=== PATIENT | female | born 1995 | race Hispanic/Latino ===

== ENCOUNTER 2019-02-15 01:16 | Emergency (ER) | payer BC ==
[2019-02-15] MEDS ORDERED: LIDOCAINE 1% W/EPI 1:100,000 MDV 50 ML VIAL ONE (01:46)
[2019-02-15 02:15] LABS: Absolute Lymphocytes (CBC) 2.1 K/uL (0.7-4.9); Absolute Monocytes 0.7 K/uL (0.1-1.3); Absolute Neutrophil 6.1 K/uL (1.8-8.0); Basophils % 0.7 % (0-1.3); Eosinophils % 1.4 % (0-4.4); Hematocrit 29.6 % (36.0-45.0); Lymphocytes % 23.1 % (15.3-44.8); MPV 9.6 fL (7.6-11.3); Monocytes % 7.9 % (3.3-12.3); RBC Red Blood Cell Count 3.81 M/uL (3.86-4.86)
[2019-02-15 02:29] LABS: ALT/SGPT 20 U/L (12-78); AST/SGOT 14 U/L (15-37); Albumin 3.6 g/dL (3.4-5.0); Alkaline Phosphatase 52 U/L (45-117); BUN Blood Urea Nitrogen 9 mg/dL (7-18); Bicarbonate 24 mmol/L (21-32); Bilirubin Total 0.3 mg/dL (0.2-1.0); Glucose Level 105 mg/dL (74-106); Potassium 3.3 mmol/L (3.5-5.1); Protein, Total 7.2 g/dL (6.4-8.2); Sodium Level 142 mmol/L (136-145)
[2019-02-15] MEDS ORDERED: CLINDAMYCIN 900MG/D5W 900 MG/50 ML IVPB IV ONE (02:33)
--- NOTE | 2019-02-15 03:06 | EDPHYS ---
Physician Documentation [facility] Name: Brook Dutta Age: 23 yrs Sex: Female : 1995 Arrival Date: 02/15/2019 Time: 01:19 Bed 7 Private MD: ED Physician Cosme Moya HPI: 02/15 03:07 This 23 yrs old Female presents to ER via Ambulatory with complaints of LT arm ps1 swelling and painful. 03:07 patient states that she is on Humira for psoriasis and took her meds 2 weeks ago. She ps1 is supposed to take another dose tomorrow but started to get an indurated and erythmatous area localized just proximal to the left AC on the upper extremity. She denies fever. Mildly painful. No purulent drainage. . 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 - Social history:: Smoking status: Patient/guardian denies using tobacco. - Ebola Screening: : No symptoms or risks identified at this time. ROS: 03:07 Constitutional: Negative for fever, chills, and weight loss, Eyes: Negative for injury, ps1 pain, redness, and discharge, ENT: Negative for injury, pain, and discharge, Cardiovascular: Negative for chest pain, palpitations, and edema, Respiratory: Negative for shortness of breath, cough, wheezing, and pleuritic chest pain, Abdomen/GI: Negative for abdominal pain, nausea, vomiting, diarrhea, and constipation, Back: Negative for injury and pain, MS/Extremity: Negative for injury and deformity, Neuro: Negative for headache, weakness, numbness, tingling, and seizure. 03:07 Skin: Positive for erythema, swelling, of the left antecubital area, generalized psoriasis. Exam: 03:07 Constitutional: This is a well developed, well nourished patient who is awake, alert, ps1 and in no acute distress. Head/Face: Normocephalic, atraumatic. Eyes: Pupils equal round and reactive to light, extra-ocular motions intact. Lids and lashes normal. Conjunctiva and sclera are non-icteric and not injected. Chest/axilla: Normal chest wall appearance and motion. Nontender with no deformity. No lesions are appreciated. Cardiovascular: Regular rate and rhythm. No gallops, murmurs, or rubs. Normal PMI, no JVD. No pulse deficits. Respiratory: Lungs have equal breath sounds bilaterally, clear to auscultation and percussion. No rales, rhonchi or wheezes noted. No increased work of breathing, no retractions or nasal flaring. Abdomen/GI: Soft, non-tender, with normal bowel sounds. No distension or tympany. No guarding or rebound. No evidence of tenderness throughout. MS/ Extremity: Pulses equal, no cyanosis. Neurovascular intact. Full, normal range of motion. Neuro: Awake and alert, GCS 15, oriented to person, place, time, and situation. Cranial nerves II-XII grossly intact. Sensory grossly intact. Psych: Awake, alert, with orientation to person, place and time. Behavior, mood, and affect are within normal limits. 03:07 Skin: cellulitis, that is mild, on the left antecubital area, generalized psoriasis, induration, that is moderate is noted. Vital Signs: 01:50 BP 124 / 78; Pulse 96; Resp 16; Temp 98.2(TE); Pulse Ox 100% on R/A; Weight 74.84 kg ak1 (R); Height 5 ft. 5 in. (165.10 cm) (R); Pain 7/10; 02:00 BP 127 / 75; Pulse 93; Resp 18 S; Temp 98.2(O); Pulse Ox 100% on R/A; cc3 03:10 BP 125 / 77; Pulse 91; Resp 17 S; Temp 98.1(O); Pulse Ox 100% on R/A; cc3 01:50 Body Mass Index 27.46 (74.84 kg, 165.10 cm) ak1 MDM: 01:54 Patient medically screened. ps1 03:10 Data reviewed: vital signs, nurses notes, lab test result(s), and as a result, I will ps1 discharge patient, administer antibiotics. Counseling: I had a detailed discussion with the patient and/or guardian regarding: the historical points, exam findings, and any diagnostic results supporting the discharge/admit diagnosis, the need for outpatient follow up, to return to the emergency department if symptoms worsen or persist or if there are any questions or concerns that arise at home. ED course: Point of care ultrasound performed at bedside and had normal compressibility of the venous structures. Additionally the patient had no evidence of abscess and localized edematous tissues c/w cellulitis. . 02/15 01:29 Order name: CBC with Diff; Complete Time: 02:26 ps1 02/15 01:29 Order name: CMP; Complete Time: 03:03 ps1 Administered Medications: 01:40 Drug: Lidocaine-Epinephrine -1%: (1:100,000) 1 application Volume: 20 ml; Route: ak1 Infiltration; 01:57 Follow up: Response: No adverse reaction ak1 02:22 Drug: Clindamycin 900 mg Route: IVPB; Infused Over: 30 mins; Site: right antecubital; ak1 Disposition: 02/15/19 03:06 Discharged to Home. Impression: Cellulitis of left upper limb. - Condition is Stable. - Discharge Instructions: Lymphangitis, Pediatric, Cellulitis, Adult, [id number]. - Prescriptions for Keflex 500 mg Oral Capsule - take 1 capsule by ORAL route every 6 hours for 10 days; 40 capsule. Bactrim DS 800- 160 mg Oral Tablet - take 1 tablet by ORAL route every 12 hours for 7 days; 14 tablet. - Medication Reconciliation Form, Thank You Letter, Antibiotic Education, Prescription Opioid Use form. - Work release form (02/15/19 03:25). cc3 - Follow up: Private Physician; When: 48 Hours; Reason: Recheck today's complaints, Continuance of care, Re-evaluation by your physician. Follow up: Emergency Department; When: As needed; Reason: Fever > 102 F, Worsening of condition. - Problem is new. - Symptoms are unchanged. Signatures: Dispatcher [employer] EDMS Kika Baird RN RN ak1 Cosme Moya MD MD ps1 Glenna Anderson cc3 Corrections: (The following items were deleted from the chart) 03:24 03:06 02/15/2019 03:06 Discharged to Home. Impression: Cellulitis of left upper limb. cc3 Condition is Stable. Forms are Medication Reconciliation Form, Thank You Letter, Antibiotic Education, Prescription Opioid Use. Follow up: Private Physician; When: 48 Hours; Reason: Recheck today's complaints, Continuance of care, Re-evaluation by your physician. Follow up: Emergency Department; When: As needed; Reason: Fever > 102 F, Worsening of condition. Problem is new. Symptoms are unchanged. ps1
--- NOTE | 2019-02-15 03:06 | ER ---
Nurse's Notes [facility] Name: Brook Dutta Age: 23 yrs Sex: Female : 1995 Arrival Date: 02/15/2019 Time: 01:19 Bed 7 Private MD: Diagnosis: Cellulitis of left upper limb Presentation: 02/15 01:51 Presenting complaint: Patient states: redness, pain and swelling to left AC area X1 ak1 day. 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 Transition of care: patient was not received from another setting of care. Onset of symptoms is unknown. Risk Assessment: Do you want to hurt yourself or someone else? Patient reports no desire to harm self or others. Initial Sepsis Screen: Does the patient meet any 2 criteria? No. Patient's initial sepsis screen is negative. Does the patient have a suspected source of infection? No. Patient's initial sepsis screen is negative. Care prior to arrival: None. 01:51 Acuity: CATARINO 3 ak1 01:51 Method Of Arrival: Ambulatory ak1 Triage Assessment: 01:54 General: Appears in no apparent distress. Behavior is calm, cooperative. Pain: ak1 Complains of pain in left antecubital area. EENT: No signs and/or symptoms were reported regarding the EENT system. Neuro: No deficits noted. Cardiovascular: No deficits noted. Respiratory: No deficits noted. GI: No signs and/or symptoms were reported involving the gastrointestinal system. : No signs and/or symptoms were reported regarding the genitourinary system. Derm: Skin is red, Skin temperature is warm Reports pain. Musculoskeletal: No signs and/or symptoms reported regarding the musculoskeletal system. 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 - Social history:: Smoking status: Patient/guardian denies using tobacco. - Ebola Screening: : No symptoms or risks identified at this time. Screenin:54 Abuse screen: Denies threats or abuse. Denies injuries from another. Nutritional ak1 screening: No deficits noted. Tuberculosis screening: No symptoms or risk factors identified. Fall Risk None identified. Assessment: 02:08 Reassessment: see triage assessment. ak1 03:24 Reassessment: Patient appears in no apparent distress at this time. Patient and/or cc3 family updated on plan of care and expected duration. Pain level reassessed. Patient is alert, oriented x 3, equal unlabored respirations, skin warm/dry/pink. Dr. Moya discharged the patient home with prescription given. IV cannula removed and patient left ER vitally stable and ambulatory with her sister. Patient denies pain at this time. Patient states feeling better. Patient states symptoms have improved. Vital Signs: 01:50 BP 124 / 78; Pulse 96; Resp 16; Temp 98.2(TE); Pulse Ox 100% on R/A; Weight 74.84 kg ak1 (R); Height 5 ft. 5 in. (165.10 cm) (R); Pain 7/10; 02:00 BP 127 / 75; Pulse 93; Resp 18 S; Temp 98.2(O); Pulse Ox 100% on R/A; cc3 03:10 BP 125 / 77; Pulse 91; Resp 17 S; Temp 98.1(O); Pulse Ox 100% on R/A; cc3 01:50 Body Mass Index 27.46 (74.84 kg, 165.10 cm) ak1 ED Course: 01:19 Patient arrived in ED. es 01:23 Cosme Moya MD is Attending Physician. ps1 01:29 Kika Baird, LOUANN is Primary Nurse. ak1 01:50 Arm band placed on Patient placed in an exam room, on a stretcher, on pulse oximetry, ak1 Patient notified of wait time. 01:52 Triage completed. ak1 01:55 Patient has correct armband on for positive identification. Placed in gown. Bed in low ak1 position. Call light in reach. Side rails up X 1. Adult w/ patient. Pulse ox on. NIBP on. 02:00 Inserted saline lock: 20 gauge in right antecubital area, using aseptic technique. cc3 Blood collected. 02:07 US of left AC. assisted with aspiration of left AC area. ak1 03:24 IV discontinued, intact, bleeding controlled, No redness/swelling at site. Pressure cc3 dressing applied. Administered Medications: 01:40 Drug: Lidocaine-Epinephrine -1%: (1:100,000) 1 application Volume: 20 ml; Route: ak1 Infiltration; 01:57 Follow up: Response: No adverse reaction ak1 02:22 Drug: Clindamycin 900 mg Route: IVPB; Infused Over: 30 mins; Site: right antecubital; ak1 Outcome: 03:06 Discharge ordered by . ps1 03:24 Patient left the ED. cc3 03:24 Discharged to home ambulatory, with family. cc3 03:24 Condition: stable 03:24 Discharge instructions given to patient, Instructed on discharge instructions, follow up and referral plans. medication usage, Demonstrated understanding of instructions, follow-up care, medications, Prescriptions given X 2. Signatures: Constance Higgins Amber, RN RN ak1 Cosme Moya MD MD ps1 Glenna Anderson cc3
[2019-02-15 04:42] VITALS: BP 124/78; TEMP 98.2; O2SAT 100
== END 2019-02-15 03:24 | disposition home or self-care (01) ==
LOC: ER 01:16
DX: L03.114 Cellulitis of left upper limb (principal)
CPT/HCPCS: 36415; 80053; 85025; 96374; 99284

== ENCOUNTER 2019-06-27 23:18 | Emergency (ER) | payer BC ==
--- NOTE | 2019-06-28 00:19 | EDPHYS ---
Physician Documentation [facility] Name: Brook Dutta Age: 24 yrs Sex: Female : 1995 Arrival Date: 06/27/2019 Time: 23:22 Bed 16 Private MD: ED Physician George Zee HPI: 06/28 00:00 This 24 yrs old Female presents to ER via Unassigned with complaints of Rash, cp rash has pus. 00:00 The patient's rash thought to be caused by an unknown cause. The rash is located on the cp base of skull and hairline of posterior scalp. 00:00 The rash can be described as painful, draining. Onset: The symptoms/episode cp began/occurred 2 day(s) ago. Associated signs and symptoms: Pertinent positives: Pain Pertinent negatives: fever, itching. Severity of symptoms: in the emergency department the symptoms are unchanged despite home interventions. Patient reports history of psoriasis and takes prescribed HUMARA. 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 - Social history:: Smoking status: Patient/guardian denies using tobacco. - Ebola Screening: : Patient negative for fever greater than or equal to 101.5 degrees Fahrenheit, and additional compatible Ebola Virus Disease symptoms Patient denies exposure to infectious person. ROS: 00:05 Skin: Positive for rash, of the posterior scalp base of skull and hairline. cp 00:05 Constitutional: Negative for body aches, chills, fever, poor PO intake. cp 00:05 Neuro: Negative for altered mental status, headache, weakness. 00:05 All other systems are negative. Exam: 00:10 Constitutional: The patient appears in no acute distress, alert, awake, non-toxic, well cp developed, well nourished. 00:10 Head/face: Exam is negative for obvious evidence of injury or deformity. cp 00:10 Skin: cellulitis, patchy, on the base of skull and posterior hairline. Vital Signs: 00:00 BP 124 / 77; Pulse 77; Resp 18; Temp 98.2; Pulse Ox 100% on R/A; wh MDM: 06/27 23:40 Patient medically screened. 06/28 00:17 Data reviewed: vital signs, nurses notes, and as a result, I will discharge patient. 00:17 Counseling: I had a detailed discussion with the patient and/or guardian regarding: the cp historical points, exam findings, and any diagnostic results supporting the discharge/admit diagnosis, to return to the emergency department if symptoms worsen or persist or if there are any questions or concerns that arise at home. Administered Medications: No medications were administered Disposition: 00:45 Chart complete. 00:52 Co-signature as Attending Physician, George Zee MD. rn Disposition: 06/28/19 00:18 Discharged to Home. Impression: Local infection of the skin and subcutaneous tissue, unspecified - posterior scalp. - Condition is Stable. - Discharge Instructions: Staphylococcal Infection. - Prescriptions for Bactroban 2 % Topical Ointment - Apply to affected area 1 application by TOPICAL route every 12 hours apply to area of rash; 30 gram. Doxycycline Hyclate 100 mg Oral Tablet - take 1 tablet by ORAL route every 12 hours; 20 tablet. - Medication Reconciliation Form, Thank You Letter, Antibiotic Education, Prescription Opioid Use form. - Follow up: Private Physician; When: 2 - 3 days; Reason: Worsening of condition. - Problem is new. - Symptoms are unchanged. Signatures: George Zee MD MD rn Gareth Lala PA PA Eric Nava Corrections: (The following items were deleted from the chart) 00:42 00:18 06/28/2019 00:18 Discharged to Home. Impression: Local infection of the skin and wh subcutaneous tissue, unspecified - posterior scalp. Condition is Stable. Forms are Medication Reconciliation Form, Thank You Letter, Antibiotic Education, Prescription Opioid Use. Follow up: Private Physician; When: 2 - 3 days; Reason: Worsening of condition. Problem is new. Symptoms are unchanged. cp
--- NOTE | 2019-06-28 00:43 | ER ---
Nurse's Notes [facility] Name: Brook Dutta Age: 24 yrs Sex: Female : 1995 Arrival Date: 06/27/2019 Time: 23:22 Bed 16 Private MD: Diagnosis: Local infection of the skin and subcutaneous tissue, unspecified-posterior scalp Presentation: 06/27 23:30 Acuity: CATARINO 4 23:30 Presenting complaint: Patient states: has Hx of Psoriasis, noticed rash at the back of neck that started this sunday. Transition of care: patient was not received from another setting of care. Onset of symptoms was June 22, 2019. Risk Assessment: Do you want to hurt yourself or someone else? Patient reports no desire to harm self or others. Initial Sepsis Screen: Does the patient meet any 2 criteria? No. Patient's initial sepsis screen is negative. Does the patient have a suspected source of infection? Yes: Skin breakdown/wound. Care prior to arrival: None. 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 - Social history:: Smoking status: Patient/guardian denies using tobacco. - Ebola Screening: : Patient negative for fever greater than or equal to 101.5 degrees Fahrenheit, and additional compatible Ebola Virus Disease symptoms Patient denies exposure to infectious person. Screenin:00 Abuse screen: Denies threats or abuse. Denies injuries from another. Nutritional screening: No deficits noted. Tuberculosis screening: No symptoms or risk factors identified. Fall Risk None identified. Assessment: 06/27 23:30 General: Appears in no apparent distress. Behavior is calm, cooperative, appropriate for age. Pain: Denies pain. Neuro: Level of Consciousness is awake, alert, obeys commands. Cardiovascular: Capillary refill < 3 seconds. Respiratory: Airway is patent Respiratory effort is even, unlabored, Respiratory pattern is regular, symmetrical. GI: Abdomen is flat, non-distended. : No signs and/or symptoms were reported regarding the genitourinary system. EENT: No signs and/or symptoms were reported regarding the EENT system. Derm: Rash noted that is on back of neck. Musculoskeletal: Circulation, motion, and sensation intact. 06/28 00:32 Reassessment: Patient appears in no apparent distress at this time. No changes from previously documented assessment. Patient and/or family updated on plan of care and expected duration. Pain level reassessed. Patient is alert, oriented x 3, equal unlabored respirations, skin warm/dry/pink. Patient denies pain at this time. Vital Signs: 00:00 BP 124 / 77; Pulse 77; Resp 18; Temp 98.2; Pulse Ox 100% on R/A; ED Course: 06/27 23:22 Patient arrived in ED. cf2 23:30 Arm band placed on right wrist. 23:37 Eric Nava is Primary Nurse. 23:38 Gareth Lala PA is PHCP. 23:38 George Zee MD is Attending Physician. 06/28 00:33 Triage completed. 00:36 Patient has correct armband on for positive identification. Bed in low position. Call light in reach. Side rails up X 1. Pulse ox on. NIBP on. 00:37 No provider procedures requiring assistance completed. Patient did not have IV access during this emergency room visit. Administered Medications: No medications were administered Outcome: 00:18 Discharge ordered by . 00:37 Discharged to home ambulatory. 00:37 Condition: good 00:37 Discharge instructions given to patient, Instructed on discharge instructions, follow up and referral plans. medication usage, POC Staph Infection Demonstrated understanding of instructions, follow-up care, medications, POC Prescriptions given X 2. 00:42 Patient left the ED. Signatures: Gareth Lala PA PA cp [place], Winsy Shamar Bernal cf2
[2019-06-28 01:24] VITALS: BP 124/77; TEMP 98.2; O2SAT 100
== END 2019-06-28 00:42 | disposition home or self-care (01) ==
LOC: ER 23:18
DX: L08.9 Local infection of the skin and subcutaneous tissue, unspecified (principal)
CPT/HCPCS: 99283

== ENCOUNTER 2019-07-29 17:56 | Emergency (ER) | payer BC ==
--- NOTE | 2019-07-29 19:47 | ER ---
Nurse's Notes [facility] Name: Brook Dutta Age: 24 yrs Sex: Female : 1995 Arrival Date: 07/29/2019 Time: 18:00 Bed 17 Private MD: Diagnosis: Rash and other nonspecific skin eruption-with local adenopathy Presentation: 07/29 18:44 Presenting complaint: Patient states: BUMP NOTICED A MONTH AGO. STARTED HURTING TWO rv DAYS AGO. Transition of care: patient was not received from another setting of care. Onset of symptoms was July 27, 2019 at 18:00. Risk Assessment: Do you want to hurt yourself or someone else? Patient reports no desire to harm self or others. Initial Sepsis Screen: Does the patient meet any 2 criteria? No. Patient's initial sepsis screen is negative. Does the patient have a suspected source of infection? No. Patient's initial sepsis screen is negative. Care prior to arrival: None. 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 - Social history:: Smoking status: Patient/guardian denies using tobacco. - Family history:: not pertinent. - Ebola Screening: : No symptoms or risks identified at this time. Screenin:55 Abuse screen: Denies threats or abuse. Nutritional screening: No deficits noted. ea Tuberculosis screening: No symptoms or risk factors identified. Fall Risk None identified. Assessment: 19:52 General: Appears in no apparent distress. Behavior is calm, cooperative, appropriate ea for age. Pain: Denies pain. Neuro: Level of Consciousness is awake, alert, obeys commands, Oriented to person, place, time, situation. Cardiovascular: Patient's skin is warm and dry. Respiratory: Airway is patent Respiratory effort is even, unlabored, Respiratory pattern is regular, symmetrical. Derm: Skin is pink, warm \T\ dry. Musculoskeletal: Circulation, motion, and sensation intact. 20:00 Reassessment: Patient and/or family updated on plan of care and expected duration. Pain ea level reassessed. Patient is alert, oriented x 3, equal unlabored respirations, skin warm/dry/pink. Pt left ED ambulatory accompanied by family, tolerating well. Vital Signs: 18:45 BP 139 / 68; Pulse 75; Resp 16; Pulse Ox 100% ; Weight 74.84 kg; Height 5 ft. 4 in. rv (162.56 cm); Pain 4/10; 18:45 Body Mass Index 28.32 (74.84 kg, 162.56 cm) rv ED Course: 18:00 Patient arrived in ED. mr 18:45 Triage completed. rv 19:11 Gareth Lopez MD is Attending Physician. kenia 19:51 Carey Friend, RN is Primary Nurse. ea 19:55 Patient has correct armband on for positive identification. Bed in low position. Call ea light in reach. Side rails up X2. 19:55 Arm band placed on right wrist. Patient placed in an exam room, on a stretcher, on ea pulse oximetry. 20:00 Patient did not have IV access during this emergency room visit. ea 23:28 No provider procedures requiring assistance completed. ea Administered Medications: 19:59 Drug: KeFLEX 500 mg Route: PO; ea 20:00 Follow up: Response: No adverse reaction ea 19:59 Drug: Neosporin Ointment 1 application Route: Topical; Site: wound; ea Outcome: 19:46 Discharge ordered by . [facility] 20:00 Patient left the ED. ea 20:00 Discharged to home ambulatory. ea 20:00 Condition: stable 20:00 Instructed on the need for admit, Demonstrated understanding of instructions, follow-up care, medications, Prescriptions given X 1. Signatures: Gareth Lopez MD MD cha Rivera, Mary Carey Friend, RN RN Arnold Peck RN RN rv
--- NOTE | 2019-07-29 19:48 | EDPHYS ---
Physician Documentation [facility] Name: Brook Dutta Age: 24 yrs Sex: Female : 1995 Arrival Date: 07/29/2019 Time: 18:00 Bed 17 Private MD: ED Physician Gareth Lopez HPI: 07/29 19:43 This 24 yrs old Female presents to ER via Ambulatory with complaints of Bump kenia on neck. 19:43 The patient's rash thought to be caused by Eczema Dermatitis. The rash is located on kenia the neck. The rash can be described as erythematous. Onset: The symptoms/episode began/occurred 2 day(s) ago. Associated signs and symptoms: Pertinent positives: None. Pertinent negatives: None. Severity of symptoms: At their worst the symptoms were mild in the emergency department the symptoms are unchanged. Treatment given at home: none. The patient has not experienced similar symptoms in the past. 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 - Social history:: Smoking status: Patient/guardian denies using tobacco. - Family history:: not pertinent. - Ebola Screening: : No symptoms or risks identified at this time. ROS: 19:43 Constitutional: Negative for fever, chills, and weight loss, Eyes: Negative for injury, kenia pain, redness, and discharge, Neck: Negative for injury, pain, and swelling, Cardiovascular: Negative for chest pain, palpitations, and edema, Respiratory: Negative for shortness of breath, cough, wheezing, and pleuritic chest pain, Abdomen/GI: Negative for abdominal pain, nausea, vomiting, diarrhea, and constipation, Back: Negative for injury and pain, : Negative for injury, bleeding, discharge, and swelling, MS/Extremity: Negative for injury and deformity, Skin: Negative for injury, rash, and discoloration, Neuro: Negative for headache, weakness, numbness, tingling, and seizure, Psych: Negative for depression, anxiety, suicide ideation, homicidal ideation, and hallucinations, Allergy/Immunology: Negative for hives, rash, and allergies, Endocrine: Negative for neck swelling, polydipsia, polyuria, polyphagia, and marked weight changes, Hematologic/Lymphatic: Negative for swollen nodes, abnormal bleeding, and unusual bruising. 19:43 ENT: Positive for of the right jaw. Exam: 19:43 Constitutional: This is a well developed, well nourished patient who is awake, alert, kenia and in no acute distress. Head/Face: Normocephalic, atraumatic. Eyes: Pupils equal round and reactive to light, extra-ocular motions intact. Lids and lashes normal. Conjunctiva and sclera are non-icteric and not injected. Cornea within normal limits. Periorbital areas with no swelling, redness, or edema. ENT: Nares patent. No nasal discharge, no septal abnormalities noted. Tympanic membranes are normal and external auditory canals are clear. Oropharynx with no redness, swelling, or masses, exudates, or evidence of obstruction, uvula midline. Mucous membranes moist. Chest/axilla: Normal chest wall appearance and motion. Nontender with no deformity. No lesions are appreciated. Cardiovascular: Regular rate and rhythm with a normal S1 and S2. No gallops, murmurs, or rubs. Normal PMI, no JVD. No pulse deficits. Respiratory: Lungs have equal breath sounds bilaterally, clear to auscultation and percussion. No rales, rhonchi or wheezes noted. No increased work of breathing, no retractions or nasal flaring. Abdomen/GI: Soft, non-tender, with normal bowel sounds. No distension or tympany. No guarding or rebound. No evidence of tenderness throughout. Back: No spinal tenderness. No costovertebral tenderness. Full range of motion. MS/ Extremity: Pulses equal, no cyanosis. Neurovascular intact. Full, normal range of motion. Neuro: Awake and alert, GCS 15, oriented to person, place, time, and situation. Cranial nerves II-XII grossly intact. Motor strength 5/5 in all extremities. Sensory grossly intact. Cerebellar exam normal. Normal gait. Psych: Awake, alert, with orientation to person, place and time. Behavior, mood, and affect are within normal limits. 19:43 Neck: External neck: rash, Thyroid: appears normal, no acute changes, Trachea: is midline with no obvious abnormalities, no acute changes, ROM/movement: is normal, no acute changes, Lymph nodes: lymphadenopathy is appreciated, posterior cervical nodes. Vital Signs: 18:45 BP 139 / 68; Pulse 75; Resp 16; Pulse Ox 100% ; Weight 74.84 kg; Height 5 ft. 4 in. rv (162.56 cm); Pain 4/10; 18:45 Body Mass Index 28.32 (74.84 kg, 162.56 cm) rv MDM: 19:11 Patient medically screened. [facility] 19:45 Data reviewed: vital signs, nurses notes. [facility] Administered Medications: 19:59 Drug: KeFLEX 500 mg Route: PO; ea 20:00 Follow up: Response: No adverse reaction 19:59 Drug: Neosporin Ointment 1 application Route: Topical; Site: wound; ea Disposition: 07/29/19 19:46 Discharged to Home. Impression: Rash and other nonspecific skin eruption - with local adenopathy. - Condition is Stable. - Discharge Instructions: Rash, Rash, [id number]. - Prescriptions for Keflex 500 mg Oral Capsule - take 1 capsule by ORAL route every 6 hours for 7 days; 28 capsule. Motrin IB 200 mg Oral Tablet - take 2 tablet by ORAL route every 6 hours As needed as needed with food; 30 tablet. - Medication Reconciliation Form, Thank You Letter, Antibiotic Education, Prescription Opioid Use form. - Follow up: Private Physician; When: 2 - 3 days; Reason: Recheck today's complaints, Re-evaluation by your physician. - Problem is new. - Symptoms have improved. Signatures: Gareth Lopez MD MD cha Antunez, Elena RN RN Arnold Peck, RN RN rv Corrections: (The following items were deleted from the chart) 20:00 19:46 07/29/2019 19:46 Discharged to Home. Impression: Rash and other nonspecific skin ea eruption - with local adenopathy. Condition is Stable. Forms are Medication Reconciliation Form, Thank You Letter, Antibiotic Education, Prescription Opioid Use. Follow up: Private Physician; When: 2 - 3 days; Reason: Recheck today's complaints, Re-evaluation by your physician. Problem is new. Symptoms have improved. kenia
[2019-07-29] MEDS ORDERED: CEPHALEXIN 250 MG CAP ONE (19:56)
[2019-07-29 20:41] VITALS: BP 139/68; O2SAT 100
== END 2019-07-29 20:00 | disposition home or self-care (01) ==
LOC: ER 17:56
DX: R21 Rash and other nonspecific skin eruption (principal); R59.0 Localized enlarged lymph nodes
CPT/HCPCS: 99283

== ENCOUNTER 2020-11-24 15:40 | Inpatient (IN) | payer BC, OTHER ==
[2020-11-24 16:17] LABS: Urine Appearance CLEAR; Urine Bilirubin NEGATIVE (NEG); Urine Blood NEGATIVE (NEG); Urine Color DK YELLOW; Urine Glucose NEGATIVE (NEG); Urine Protein 2+ (NEG); Urine Specific Gravity >=1.030 (1.005-1.030); Urine pH 6.5 (5.0-7.0)
[2020-11-24 16:19] LABS: Absolute Lymphocytes (CBC) 1.7 K/uL (0.7-4.9); Basophils % 0.7 % (0-1.3); Lymphocytes % 16.4 % (15.3-44.8); RBC Red Blood Cell Count 3.01 M/uL (3.86-4.86)
[2020-11-24 16:34] LABS: ALT/SGPT 11 U/L (12-78); AST/SGOT 13 U/L (15-37); Albumin 2.2 g/dL (3.4-5.0); Alkaline Phosphatase 138 U/L (45-117); BUN Blood Urea Nitrogen 10 mg/dL (7-18); Bicarbonate 22 mmol/L (21-32); Bilirubin Direct < 0.1 mg/dL (0-0.2); Bilirubin Total 0.4 mg/dL (0.2-1.0); Glucose Level 79 mg/dL (74-106); Potassium 3.9 mmol/L (3.5-5.1); Protein, Total 5.9 g/dL (6.4-8.2); Sodium Level 140 mmol/L (136-145); Uric Acid 3.3 mg/dL (2.6-6.0)
[2020-11-24 16:38] LABS: Protime INR 0.96
[2020-11-24 17:00] LABS: Urine Bacteria <20 /HPF (<20); Urine RBC <5 /HPF (NONE SEEN)
[2020-11-24 17:02] LABS: Hematocrit 20.5 % (36.0-45.0)
[2020-11-24] MEDS ORDERED: Ringers Lactate 1,000 ML IV PRN (18:08)
--- OUTSIDE RECORDS SUMMARY | 2020-11-24 18:10 | XMS REPORT | Continuity of Care Document ---
:1995 Author Organization [facility] t Address [address] [place] [address] [address]. [address] [place] [address] Care Team Providers Name Role Phone Jeff LAURA Primary Care Physician Rony LAURA, M Attending Clinician P[facility], Care Clinic Attending Clinician Unavailable Problems Condition Condition Condition Status Onset Resolution Last Treating Co mments Source Name Details Category Date Date Treatment Clinician Date Psoriasis Psoriasis Disease Active 2017-09 09-29 Anderso 00:00: n 00 Menorrhagi Menorrhagi Disease Active 2017-09 M D a a 09-29 Anderso 00:00: n 00 Uterine Uterine Disease Active 2017-09 leiomyoma leiomyoma 09-29 Jam rso 00:00: n 00 History of History of Disease Active M D gestationa gestationa 12-28 Patsy bourneso l l 00:00: n hypertensi hypertensi 00 on on Allergies, Adverse Reactions, Alerts This patient has no known allergies or adverse reactions. Family History Family Member Diagnosis Comments Start Date Stop Date Source Maternal grandfather -Gastrointestinal MD Lopez (Esophagus, Liver, Bile Duct, Stomach, Pancreas, Colon, Rectum, Anus Social History Social Habit Start Date Stop Date Quantity Comments Source Sex Assigned At MD Nichols on Tobacco use and 2018-09-16 2018-09-16 Never used MD Nichols on exposure 00:00:00 00:00:00 Alcohol intake 2018-09-16 2018-09-16 Current drinker MD Patsy cobb 00:00:00 00:00:00 of alcohol (finding) Alcohol Comment 2018-07-29 2018-07-29 social MD Nichols on 00:00:00 00:00:00 Smoking Status Start Date Stop Date Source Never smoker MD Lopez Medications Ordered Filled Start Stop Current Ordering Indication Dosage Frequency Signature Comments Components Source Medication Medication Date Date Medication? Clinician (SIG) Name Name olga 2017-09 Yes menorrhagia 1{tbl} Take 1 MD sainzestrad 2-31 tablet by And erso iol-iron 19:41: mouth n (TAYTULLA) 54 daily. 1 mg-20 mcg (24)/75 mg (4) cap apremilast 2017-09 Yes moderate to 30mg Take 30 mg MD 30 mg tab 2-31 severe by mouth Jam rso 19:41: plaque twice n 54 psoriasis daily. cetirizine 2017-09 Yes allergic 10mg Take 10 mg MD (ZyrTEC) 10 2-31 rhinitis by mouth Anderso mg tablet 19:41: daily as n 54 needed. Procedures This patient has no known procedures. Encounters Start End Encounter Admission Attending Care Care Encounter Source Date/Time Date/Time Type Type Clinicians Facility Department ID 2019-12-17 2019-12-17 Telephone [facility] [id number] 00:00:00 00:00:00 , [facility] [id number] M [place] [id number] Professio [phone] [address]al [address] 2019-12-16 2019-12-16 Urgent Pob1, Acute [facility] [id number] 13:09:25 13:48:50 [facility] [id number] [place] [id number] Professio [phone] nal [phone] Results This patient has no known results.
[2020-11-24 18:45] VITALS: BMI 33.9
[2020-11-24] MEDS ORDERED: Ringers Lactate 1,000 ML IV SCH (19:00)
[2020-11-24] MEDS ORDERED: NA CHLORIDE 0.9% 500 ML ONE (20:19)
[2020-11-24 22:31] LABS: Anisocytosis 2+; Blood Morphology Comment NOTED (NOT SEEN); Hypochromasia 1+; Platelet Estimate ADEQ; Polychromasia 1+; White Blood Cell Scan OK (OK)
[2020-11-24] MEDS ORDERED: NA CHLORIDE 0.9% 100 ML ONE (22:33)
[2020-11-25] LABS: Protime INR 0.96
[2020-11-25 02:16] LABS: RPR (Rapid Plasma Reagin) NON-REACT (NON-REACT)
[2020-11-25 03:38] LABS: Basophils % 0.6 % (0-1.3); Hematocrit 26.2 % (36.0-45.0); MPV 9.4 fL (7.6-11.3); RBC Red Blood Cell Count 3.62 M/uL (3.86-4.86)
[2020-11-25] MEDS ORDERED: PROMETHAZINE INJ 25 MG/ML AMP IM PRN (03:52)
[2020-11-25] MEDS ORDERED: BUTORPHANOL 1 MG/ML INJ IV PRN (03:52)
[2020-11-25] MEDS ORDERED: METHYLERGONOVINE 0.2MG/ML AMP IM PRN (03:52)
[2020-11-25] MEDS ORDERED: CARBOPROST TROME 250 MCG/ML IM PRN (03:52)
[2020-11-25] MEDS ORDERED: OXYTOCIN/LR 1,000 ML IV SCH (04:00)
[2020-11-25] MEDS ORDERED: OXYTOCIN/LR 20 UNIT/1,000 ML BAG IV SCH ×2 (04:10→10:00)
--- NOTE | 2020-11-25 07:56 | PREOPHP ---
Date of Admission: 11/24/2020 History Of Present Illness: A 25-year-old 3, para 2. The patient noted to have severe anemi a. Hemoglobin initially was noted to be about 6.7, repeat was about 7. The patient has elevated blo od pressures in the office and occasionally has an elevated blood pressure. Her blood pressures have been at least 15 points above baseline. She has +2 protein. She has severe pretibial and general e katrina at least +3. Reflexes are brisk. She had a headache about 2-3 days ago. She has a favorable c ervix because of the fact that she is 37+ weeks, has preeclampsia, severe anemia. This required 2 un its of blood to be given. It was decided proceed with induction at this point. She delivered her fi rst at 37 weeks because of the preeclampsia as well. Family History: Paternal grandmother with hypertension. Paternal grandmother with a stroke. Matern al grandfather with diabetes. Allergies: THE PATIENT HAS NO ALLERGIES. Medications: vitamins prior to admission, although I do not think she was taking them well. Social History: Does not smoke. Physical Examination: HEENT: Clear. Pupils equal, round, reactive to light and accommodation. Conjunctivae well perfused . No oral, lingual, or buccal lesions. Chest: Lungs clear. Heart: Without murmurs, thrills, heaves, or rubs. Breasts: Without masses on previous visits. Abdomen: Term size. Assessment And Plan: She has a female fetus, severe edema, brisk reflexes. Blood pressures have onl y been to the 140 range over 90 and most of the time lower than that, but this patient has preeclamps ia. She is 2.5 to 3 cm this morning vertex. Rupture of membranes. Clear fluid. Baby looks good on the monitor. We will probably begin magnesium sulfate as the blood pressures elevate when she gets for more advanced labor. Full discuss ion with the patient. ADONIS/GREG Voice ID: [id number]
[2020-11-25] MEDS ORDERED: LIDOCAINE 1% MPF 30 ML VIAL ONE (09:27)
[2020-11-25] MEDS ORDERED: DOCUSATE NA/SENNA CONC 1 TAB PO PRN (09:30)
[2020-11-25] MEDS ORDERED: BISACODYL 10 MG RECTAL SUPP PR PRN (09:30)
[2020-11-25] MEDS ORDERED: IBUPROFEN 200 MG TAB PO PRN (09:30)
[2020-11-25] MEDS ORDERED: ACETAMINOPHEN 500 MG TAB PO PRN (09:30)
[2020-11-25] MEDS ORDERED: Oxycodone HCl/Acetaminophen 1 TAB TAB PO PRN ×2 (09:30)
[2020-11-25] MEDS ORDERED: DIPHENHYDRAMINE 25 MG TAB/CAP PO PRN (09:30)
[2020-11-25] MEDS: PHENOBARBITAL 32.4 MG TABLET PO SCH ×2 (10:15→18:00)
--- NOTE | 2020-11-25 10:31 | OP ---
Surgeon: Mohan De La Cruz MD Indications And Procedure In Detail: Brook Dutta is a 25-year-old, 3, para 2, 37 weeks 2 da ys, preeclampsia, severe anemia. The patient was noted to have mild preeclampsia, but was also noted to have admission hematocrit of 20, repeat showed 21. She was given 2 units of packed cells, now it is around 26 to 27. Her cervix was favorable. She has a history of preeclampsia with the first pre gnancy at 37 weeks that this necessitated delivery. This morning, the patient was 2.5 to 3 cm, ruptu re of membranes, clear fluid. The patient went to a very active labor pattern. Had Phenergan 25 mg IM during the labor for nausea, but no analgesics. Went rapidly to complete second stage of about 10 to 15 minutes. Spontaneous vaginal delivery of a 6-pound 13-ounce female, Apgars 9 and 9 or 9 and 1 0. No episiotomy. No laceration. Schultze delivery of the placenta. Placenta inspected and noted to have eccentric location and insertion of the cord, but otherwise normal and intact. Estimated blo od loss 300 to 350 cc. The patient tolerated all procedures well. Blood pressures are now in the 14 0 range systolic, so we will start her on phenobarbital for the next 24 hours, possibly longer. Final Diagnoses: Intrauterine gestation, 37 weeks 2 days, preeclampsia, severe anemia necessitating blood transfusion, favorable cervix, labor induction vaginal delivery. ADONIS/GREG Voice ID: [id number] Report ID: [id number]
[2020-11-25 15:43] LABS: Hematocrit 26.7 % (36.0-45.0)
[2020-11-26] MEDS: PHENOBARBITAL 32.4 MG TABLET PO SCH ×2 (02:00→10:00)
[2020-11-26] MEDS ORDERED: PHENOBARBITAL 32.4 MG TABLET PO ONE (02:23)
[2020-11-26 08:17] VITALS: BP 138/77; TEMP 97.2
--- NOTE | 2020-11-26 08:54 | DS ---
Hospital Course: 25-year-old 3, para 2, previous history of preeclampsia at 37 weeks with th e first , preeclampsia again with this at 37 weeks and 2 days. She was also noted on admission to have an extremely low hematocrit of 20, was given 2 units of packed cells. Hematocr it went up to 26 and is stable at 26.7. After rupture of membranes, she delivered rapidly of a 6 tc nds 13 ounces female. Apgars 9 and 9. No episiotomy. No laceration. Schultze delivery of the plac enta. Uterus contracted down well. 300 cc or less blood loss. Rh positive, immune to Rubella. Neg ative strep screen. ; afebrile, ambulating and voiding. Blood pressures have moderated. We will give her 1 more dose of phenobarbital but I do not really think she needs any after that. Re quires no analgesics on dismissal. Tdap and flu shots again offered. Final Diagnoses: Intrauterine gestation, 37 weeks 2 days, preeclampsia, severe anemia, blood transfu astrid, vaginal delivery. The patient also with blood transfusion, had Ringer's lactate instead of nor mal saline running for about 75 cc, but does not appear to have any hemolytic consequences. Haptoglo bin is pending, but her blood count is stable. The patient is not jaundiced or having any other sign s of any significant hemolytic situation. JENNIFERC/KASIAL Voice ID: [id number] Report ID: [id number]
[2020-11-29 19:05] LABS: HBsAG Nonreactive (Nonreactive)
== END 2020-11-26 13:00 | disposition home or self-care (01) | DRG 807 ==
LOC: L&D 15:40 → 2ND-WC 18:06
PROVIDERS: ADMIT Specialist; ATTEND Specialist
PROC: 10E0XZZ Delivery of Products of Conception, External Approach (ICD-10-PCS; principal; 2020-11-24)
PROC: 10907ZC Drainage of Amniotic Fluid, Therapeutic from Products of Conception, Via Natural or Artificial Opening (ICD-10-PCS; 2020-11-24)
PROC: 3E033VJ Introduction of Other Hormone into Peripheral Vein, Percutaneous Approach (ICD-10-PCS; 2020-11-24)
PROC: 30233N1 Transfusion of Nonautologous Red Blood Cells into Peripheral Vein, Percutaneous Approach (ICD-10-PCS; 2020-11-24)
DX: O15.1 Eclampsia complicating labor (principal); Z37.0 Single live birth; O99.02 Anemia complicating childbirth; O13.4 Gestational [pregnancy-induced] hypertension without significant proteinuria, complicating childbirth; Z3A.37 37 weeks gestation of pregnancy
CPT/HCPCS: 36415; 36430; 80048; 80076; 81001; 83010; 84550; 85014; 85018; 85025; 85610; 85730; 86592; 86850; 86900; 86901; 87340; 99218; J2210; J2550; J2590; J7040; J7120; P9016